=== PATIENT | male | born 2005 | race Caucasian/White ===

== ENCOUNTER 2024-07-01 16:31 | Emergency (ER) | payer BC, SELFPAY ==
[2024-07-01 16:36] VITALS: BP 119/76; PULSE 98; RESP 16; TEMP 36.6; O2SAT 98
--- NOTE | 2024-07-01 16:48 | ED.URI ---
HPI - URI/Sore Throat General Chief Complaint: Upper Respiratory Infection Stated Complaint: throat/weak/nausea Time Seen by Provider: 07/01/24 16:50 Source: patient and RN notes reviewed Mode of arrival: ambulatory Limitations: no limitations History of Present Illness HPI Narrative: 18 year old male presents with concern for 2 day history of sore throat, body aches, chills, sweats, feeling tired. He reports he has tried NyQuil without relief. MD elicited complaint: sore throat Related Data Allergies Allergy/AdvReac Type Severity Reaction Status Date / Time Penicillins Allergy Unknown unknown Verified 07/01/24 16:45 Review of Systems Review of Systems: CONSTITUTIONAL: Reports malaise, chills, sweats EYES: Denies visual changes, redness, or discharge. ENT: Denies rhinorrhea, congestion, sinus pain, otalgia reports sore throat. CARDIOVASCULAR: Denies chest pain, palpitations, or edema. RESPIRATORY: Denies cough. Denies dyspnea. GASTROINTESTINAL: Denies abdominal pain, nausea, vomiting, diarrhea SKIN: Denies rash or itching. MUSCULOSKELETAL: Reports myalgia. NEUROLOGIC: Reports headache. All systems reviewed & are unremarkable except as noted in HPI and below PMFSH Comments At time of signature, agree with nursing past medical, surgical, social and family history. There is no relevant family history pertinent to the presenting complaint Exam Narrative: GENERAL: Nontoxic-appearing, well-nourished, and in no acute distress. HEAD: Normocephalic EYES: PERRLA, conjunctivae clear ENT: Nares clear. Mucous membranes moist. TM pearly garcia with dull light reflex bilaterally; no tragal tenderness. Oropharynx not erythematous without lesions. Tonsils not enlarged and without exudate, no drooling, no hoarseness, no trismus, uvula midline. NECK: Supple. No lymphadenopathy CHEST: Clear to auscultation, breath sounds equal. No wheezing, rhonchi, rales, or stridor. No respiratory distress, speaks in full sentences. HEART: Regular rate and rhythm. No murmur heard. SKIN: Warm, dry, no rash. NEURO: Alert and oriented x3. PSYCH: Normal mood and affect Course Course Emergency Course: Patient is aware of diagnosis, understands and agrees to treatment plan. Anticipatory guidance given. Patient agrees to follow-up as directed and is aware of reasons to seek care at the emergency department. Portions of this record may have been created with voice recognition software Level of Care: Express Care Visit Vital Signs Vital signs: Vital Signs Temperature 97.8 F 07/01/24 16:36 Pulse Rate 98 07/01/24 16:36 Respiratory Rate 16 07/01/24 16:36 Blood Pressure 119/76 07/01/24 16:36 Pulse Oximetry 98 07/01/24 16:36 Oxygen Delivery Room Air 07/01/24 16:36 Temperature 97.8 F 07/01/24 16:36 Pulse Rate 98 07/01/24 16:36 Respiratory Rate 16 07/01/24 16:36 Blood Pressure 119/76 07/01/24 16:36 Pulse Oximetry 98 07/01/24 16:36 Oxygen Delivery Room Air 07/01/24 16:36 Reviewed. MDM - URI/Sore Throat MDM Narrative Medical decision making narrative: Differential diagnosis considered: Arteaga virus, strep pharyngitis, allergic rhinitis, upper respiratory tract infection, sinusitis, rhinosinusitis, nasopharyngitis. viral pharyngitis, otitis media, otitis externa, pneumonia, bronchitis, viral cough syndrome, viral syndrome, and influenza. Exam findings show no acute concerns or changes; patient is non-toxic appearing and is in no distress. Patient is appropriate for outpatient treatment and follow-up. Lab Data Attestation: I reviewed the patient's lab results. Critical Care Time Critical Care Time Critical Care Time: No Discharge Plan Discharge Clinical Impression: Acute viral syndrome Patient Disposition: Home, Self-Care Condition: Stable Instructions: Viral Syndrome (ED) Additional Instructions: Your rapid strep swab was negative today at [facility]. A throat culture will be sent to the laboratory for further testing. If the test is positive, you will receive a phone call within 48 hours and an appropriate antibiotic will be initiated at that time. Your symptoms are likely due to a viral illness, which is not treated with antibiotics. Viral symptoms can be present for up to a few weeks. -Alternate Tylenol and Motrin per package directions for fever or pain. -Antihistamine medication such as Benadryl at night and Zyrtec during the day can help improve symptoms. -Eat and drink things that are easy to swallow, like tea or soup, or popsicles to suck on. -Oral rinses such as: Salt water gargles and/or may use topical anesthetic (eg. Chloraseptic spray) or lozenges to relieve dryness or throat pain). -Frequent hand washing or hand internet security specialist is one of the best ways to prevent spread of infection. -Follow up with primary care provider in 2-3 days if condition is not improving; or seek ER visit if you have trouble breathing, cannot drink enough fluids, have muffled voice, difficulty opening your mouth, or severe swelling. Patient Language: Tamazight Prescriptions: New pseudoephedrine HCl [12 Hour Decongestant] 120 mg tablet extended release 120 mg PO Q12H PRN (Reason: nasal congestion) Qty: 20 0RF Follow-up/Referrals: PHYSICIAN,SUPPORT ANALYST [Primary Care Provider] - Stand Alone Forms: Work/School Release IP Time of Disposition: 17:07
[2024-07-01 17:18] LABS: EDSTREPNEGPOS1 Negative (Negative)
== END 2024-07-01 17:13 | disposition home or self-care (01) ==
PROVIDERS: Emergency Provider Nurse Practitioner
DX: B34.9 Viral infection, unspecified (principal)
CPT/HCPCS: 87081; 87880; 99203; G0463

== ENCOUNTER 2024-07-14 18:52 | Emergency (ER) | payer BC, SELFPAY ==
[2024-07-14 18:56] VITALS: BP 126/68; PULSE 80; RESP 18; TEMP 37; O2SAT 99
--- NOTE | 2024-07-14 19:08 | ED_ITS ---
HPI - URI/Sore Throat General Chief Complaint: Upper Respiratory Infection Stated Complaint: Sore Throat/Sinus Problem/Chills Time Seen by Provider: 07/14/24 19:08 Source: patient Mode of arrival: ambulatory Limitations: no limitations History of Present Illness HPI Narrative: 18-year-old male presents with complaint of sinus congestion, pressure, postnasal drainage, sore throat for 2 weeks. Was seen here last week, negative strep test. Given pseudoephedrine to treat congestion. Reports symptoms not improving. All systems reviewed and negative except as noted above. Related Data Home Medications ?Medication ?Instructions ?Recorded ?Confirmed ?Last Taken ?Type albuterol sulfate .ROUTE 07/14/24 Unknown History Allergies Allergy/AdvReac Type Severity Reaction Status Date / Time Penicillins Allergy Unknown unknown Verified 07/14/24 19:03 Review of Systems 2 Review of Systems: CONSTITUTIONAL: Denies fever, chills, or sweats. EYES: Denies visual changes, redness, or discharge. ENT: Reports rhinorrhea, congestion, sore throat. Denies otalgia. CARDIOVASCULAR: Denies chest pain, palpitations, or edema. RESPIRATORY: Denies cough or dyspnea. GASTROINTESTINAL: Denies abdominal pain, nausea, vomiting, or diarrhea. GENITOURINARY: Denies dysuria or hematuria. SKIN: Denies rash or itching. MUSCULOSKELETAL: Denies back pain, joint pain, or myalgia. NEUROLOGIC: Denies headache, numbness, or weakness. PSYCHIATRIC: Denies anxiety or depression. All other systems reviewed are negative, except as documented in HPI. PMFSH Comments At time of signature, agree with nursing past medical, surgical, social and family history. There is no relevant family history pertinent to the presenting complaint. Exam Narrative: GENERAL: This is a well-nourished, well-developed patient, in no apparent distress. HEAD: normocephalic, atraumatic. EYES: PERRL. Sclera clear/white. Vision is grossly intact. EARS: External ears normal, auditory canals clear and without drainage, TMs normal without perforation. Hearing grossly intact. NOSE: External nose normal with mild congestion, frontal sinus tenderness to left side on palpation THROAT: Mucous membranes moist, mild erythema with mild swelling, postnasal drainage NECK: Neck supple, non-tender without lymphadenopathy, masses or thyromegaly. CARDIOVASCULAR: Regular rate and rhythm without murmurs, gallops, or rubs. RESPIRATORY: Clear to auscultation. Breath sounds equal bilaterally. No wheezes, rales, or rhonchi. SKIN: warm, Dry, intact with no suspicious lesions or rash, good texture and turgor. NEURO: awake, alert, and oriented to person, place and time. There were no obvious focal neurologic abnormalities. EXTREMITIES: No joint tenderness, effusion, or edema noted. Course Course Level of Care: Express Care Visit Vital Signs Vital signs: Vital Signs Temperature 37.0 C 07/14/24 18:56 Pulse Rate 80 07/14/24 18:56 Respiratory Rate 18 07/14/24 18:56 Blood Pressure 126/68 07/14/24 18:56 Pulse Oximetry 99 07/14/24 18:56 Oxygen Delivery Room Air 07/14/24 18:56 Temperature 37.0 C 07/14/24 18:56 Pulse Rate 80 07/14/24 18:56 Respiratory Rate 18 07/14/24 18:56 Blood Pressure 126/68 07/14/24 18:56 Pulse Oximetry 99 07/14/24 18:56 Oxygen Delivery Room Air 07/14/24 18:56 reviewed MDM - URI/Sore Throat MDM Narrative Medical decision making narrative: will treat patient for bacterial sinusitis due to duration of symptoms and exam findings. Patient is well-appearing, nontoxic. Agrees with plan of care. Patient is aware of diagnosis, understands and agrees to treatment plan. Anticipatory guidance given. Patient agrees to follow-up as directed and is aware of reasons to seek care at the emergency department. Portions of this record may have been created with voice recognition software Differential Diagnosis Differential diagnosis: Likely upper respiratory infection, sinusitis, viral infection, influenza and pharyngitis Discharge Plan Discharge Clinical Impression: Acute bacterial sinusitis Patient Disposition: Home, Self-Care Condition: Stable Instructions: Antibiotic Form, Sinusitis (ED) Additional Instructions: take antibiotic as prescribed until gone. take Tylenol or ibuprofen every 6-8 hours as needed for fever and pain. Drink at least 64 oz of water a day. Place cool mist humidifier in bedroom where you sleep. Follow-up with your primary care physician if symptoms are not improving. Patient Language: Urdu Prescriptions: New doxycycline hyclate 100 mg capsule 100 mg PO BID 7 Days Qty: 14 0RF fluticasone propionate [Flonase Allergy Relief] 50 mcg/actuation spray,suspension 1 spray intranasal BID Qty: 16 0RF Rx Instructions: administer into each nostril loratadine [Claritin] 10 mg tablet 10 mg PO DAILY Qty: 30 0RF No Action albuterol sulfate .ROUTE Follow-up/Referrals: PHYSICIAN,UNION LABORER [Primary Care Provider] - Stand Alone Forms: Work/School Release IP Time of Disposition: 19:15
== END 2024-07-14 19:18 | disposition home or self-care (01) ==
PROVIDERS: Emergency Provider Nurse Practitioner Family
DX: J01.90 Acute sinusitis, unspecified (principal); J45.909 Unspecified asthma, uncomplicated
CPT/HCPCS: 99213; G0463

== ENCOUNTER 2024-11-25 18:41 | Emergency (ER) | payer BC, SELFPAY ==
[2024-11-25 18:41] VITALS: BP 127/74; PULSE 118; RESP 22; O2SAT 96
--- OUTSIDE RECORDS SUMMARY | 2024-11-25 18:43 | XMS_ITS | Referral Summary ---
Author Organization [facility] Address [address] [place] [address] Care Team Providers Care Loan Consultant Name Role Phone No, Physician Primary Care Provider [phone] Allergies Active Allergy Reactions Criticality Noted Date Comments Shellfish Containing Products Anaphylaxis High 02/22 Sulfa (Sulfonamide Antibiotics) Hives Medium 01/29 Medications naproxen (NAPROSYN) 375 mg tablet Take 1 tablet (375 mg total) by mouth 2 (two) times a day with meals P.r.n. pain. Collaborating physician Trey Silva MD 20 tablet 1 Active albuterol HFA (PROVENTIL HFA,VENTOLIN HFA,PROAIR HFA) 90 mcg/actuation inhaler INHALE 2 PUFFS BY MOUTH EVERY 4 HOURS DIRECTED 2 Active cetirizine (ZyrTEC) 10 mg tablet Take 10 mg by mouth daily as needed 2 Active Flovent HFA 110 mcg/actuation inhaler Inhale 2 puffs 2 (two) times a day 2 Active fluticasone propionate (FLONASE) 50 mcg/actuation nasal spray SHAKE LIQUID AND USE 1 SPRAY IN EACH NOSTRIL DAILY 2 Active montelukast (SINGULAIR) 10 mg tablet Take 10 mg by mouth nightly at bedtime 2 Active Active Problems Problem Noted Date Diagnosed Date Regular astigmatism of both eyes 02/20/2022 Myopia of both eyes 02/20/2022 Irritation of both eyes 02/20/2022 Strain of other muscle(s) an d tendon(s) at lower leg level, left leg, initial encounter 02/22/2021 Sprain of anterior talofibular ligament of left ankle 02/22/2021 Screening for iron deficiency anemia 09/23/2006 Acute upper respiratory infection 05/16/2005 Social History Tobacco Use Types Packs/Day Years Used Date Smoking Tobacco: Former Cigarettes Q uit: 10/26/2021 Smokeless Tobacco: Former Personal Safety Answer Date Recorded Have you ever been in or are you currently in a harmful physical or emotional relationship or is someone making you feel afraid or unsafe? 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 Gender Identity Not on file Sexual Orientation Not on file Last Filed Vital Signs Vital Sign Reading Time Taken Comments Blood Pressure 124/79 08/10/2024 7:28 AM FORMING DEPARTMENT SUPERVISOR Pulse 75 08/10/2024 7:28 AM FORMING DEPARTMENT SUPERVISOR Temperature 36.6 C (97.8 F) 08/10/2024 7:28 AM FORMING DEPARTMENT SUPERVISOR Respiratory Rate 16 08/10/2024 7:28 AM FORMING DEPARTMENT SUPERVISOR Oxygen Saturation 99% 08/10/2024 7:28 AM FORMING DEPARTMENT SUPERVISOR Inhaled Oxygen Concentration - - Weight 75.8 kg (167 lb) 08/10/2024 5:05 AM FORMING DEPARTMENT SUPERVISOR Height 177.8 cm (5' 10) 08/10/2024 5:05 AM FORMING DEPARTMENT SUPERVISOR Body Mass Index 23.96 08/10/2024 5:05 AM FORMING DEPARTMENT SUPERVISOR Plan of Treatment Not on file Insurance [facility] PLAN [facility] [place] [address] [address] Care Teams Loan Consultant Relationship Specialty Start Date End Date No, Physician PCP - General 08/05/24
--- OUTSIDE RECORDS SUMMARY | 2024-11-25 18:43 | XMS_ITS | Clinical Summary ---
Author Organization [facility] Address [address] [place] [address] Care Team Providers Care Marketing Communication Manager Name Role Phone Sanjuanita Gray MD Primary Care Provider [phone] Vanda Hale APRN-PUBLIC HEALTH TECHNOLOGIST Unavailable [phone] Source Comments [facility],non-owned Affiliates and Associated Physician Practices is amultiple site organization consisting of ambulatory clinics and hospital sitesin [place], [place], [place] and [place]. This disclosure is being madepursuant to the Care Everywhere program and may not contain all information available regarding this patient. Last updated 18.[facility] [employer] Allergies No known active allergies Medications * Be aware that medications may not be up to date on this document. Alwaysverify current medications with the patient. albuterol (PROVENTIL;HEMA BREA) (5 MG/ML) 0.5% nebulizer solution Inhale 2.5 mg by mouth every 4 hours while awake. Active budesonide (PULMICORT) 0.25 MG/2ML nebulizer suspension Inhale 0.25 mg by mouth 2 times daily. 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 Gender Identity Not on file Sexual Orientation Not on file Last Filed Vital Signs Vital Sign Reading Time Taken Comments Blood Pressure 138/66 01/19/2024 4:48 PM CDT Pulse 83 01/19/2024 4:48 PM CDT Temperature 36.5 C (97.7 F) 01/19/2024 4:48 PM CDT Respiratory Rate 16 01/19/2024 4:48 PM CDT Oxygen Saturation 98% 01/19/2024 4:48 PM CDT Inhaled Oxygen Concentration - - Weight 24.4 kg (53 lb 12.8 oz) 01/14/2012 3:06 P M CDT Height 177.8 cm (5' 10) 01/19/2024 4:48 PM CDT Body Mass Index - - Plan of Treatment Health Maintenance Due Date Last Done Comments HIV SCREENING 09/26/2019 HPV VACCINE (1 - Male 3-dose series) 09/26/2019 MENINGOCOCCAL (Group B) VACCINE SHARED DECISION-MAKING (1 of 2 - Standard) 2020 HEPATITIS C SCREENING 09/21/2022 DTAP/TDAP/TD VACCINES (1 - Tdap) 09/26/2023 HEPATITIS B VACCINE (1 of 3 - 19+ 3-dose series) 09/26/2023 COVID-19 VACCINE (1 - 2023-2 5 season) 2024 DEPRESSION SCREENING 06/30/2024 INFLUENZA VACCINE (Season Ended) 2025 04/20/2013, 04/11/2010, 05/30/2009 ZOSTER VACCINE (1 of 2) 2054 HIB VACCINE Aged Out No longer eligi ble based on patient's age to complete this topic MENINGOCOCCAL GROUPS A/C/Y/W VACCINE Aged Out No longer eligible b ased on patient's age to complete this topic PNEUMOCOCCAL VACCINE Aged Out No long er eligible based on patient's age to complete this topic Insurance [employer] Care Teams Marketing Communication Manager Relationship Specialty Start Date End Date Sanjuanita Gray MD [address] [facility] [address] [place] [id number] PCP - General 08/23/09 Vanda Hale, ORDER DESK CLERK-PUBLIC HEALTH TECHNOLOGIST [address] [place] [address] PCP - Attributed-[employer] Medicaid [id number] 02/29/24
--- OUTSIDE RECORDS SUMMARY | 2024-11-25 18:43 | XMS_ITS | Continuity of Care Document ---
Author Organization [facility] Address [address] [place] [address] Phone Care Team Providers Care Multimedia Educational Specialist Name Role Phone Maikol Gray MD Unavailable Unavailable Allergies, Adverse Reactions, Alerts Substance Reaction Status Criticality No Known Drug Allergies Other Active No I nformation Medications Medication Instructions Dosage Effective Dates (start - stop) Status Comments ProAir HFA 90 mcg/actuation aerosol inhaler inhale 2 puff by inhalation route every 4 - 6 hours as needed - Active loratadine 10 mg tablet 1 tablet by oral route every 24 hours prn allergy symptoms - Active Qvar 40 mcg/actuation Metered Aerosol oral inhaler 2 puffs twice daily - Active replace s Pulmicort Flexhaler Flonase 50 mcg/actuation nasal spray,suspension spray 1 spray by intranasal route every day in each nostril - Active ProAir HFA 90 mcg/actuation aerosol inhaler inhale 2 puff by inhalation route every 4 - 6 hours as needed - No Longer Active loratadine 10 mg tablet 1 tablet by Oral route every 24 hours prn allergy symptoms - No Longer Active Advance Directives Directive Yes / No Effective Date File Name No Information Encounters Encounter Description Practice Location Reason(s) For Visit Diagnoses Date Provider Providers Copied on Encounter [facility], [address], [place], [place], [address] , [place] tel: [phone] [facility] Encntr for routine child health exam w/o abnormal findingsMild intermittent asthma without complicationAllergic rhinitis, unspecified Sep-0 3- 9 Isaac Lassiter. [address], [address], [place], [place], [address], [place]. tel:[phone] Referring Provider: Maikol Singh, [address] [facility] [address], [place], [address] . tel:[phone] [facility], [address], [place], [place], [address] , [place] tel: [phone] [facility] acute visit (chief complaint) Bone pain 9 Nemo Oquendo. [address], [place], [place], [address], [place]. tel:[phone] Referring Provider: Maikol Singh, [address], [place], [address] . tel:[phone] [facility], [address], [place], [place], [address] , [place] tel: [phone] [facility] well visit (chief complaint) Asthma-con trol (chief complaint) Encntr for routine child health exam w/o abnormal findingsMild persistent asthma without complication 8 Isaac Lassiter. [address], [address], [place], [place], [address], [place]. tel:[phone] Referring Provider: Maikol Singh, [address], [place], [address] . tel:[phone] [facility], [address], [place], [place], [address] , [place] tel: [phone] [place] Injury of left ankle, initial encounter 7 Nemo Oquendo. [address], [address], [place], [place], [address], [place]. tel:[phone] Referring Provider: Maikol Singh, [address], [place], [address] . tel:[phone] [facility] [address], [place], [place], [address] , tel: [phone] [place] Agitated depression 7 Isaac Lassiter. [address], [address], [place], [place], [address], [place]. tel:[phone] Referring Provider: Maikol Singh, [address], [place], [address] . tel:[phone] [facility] [address], [place], [place], [address] , tel: [phone] [place] Lymphadenitis 6 Isaac Lassiter. [address] [facility] [facility], [address], [place], [place], [address], [place]. tel:[phone] Referring Provider: Maikol Singh, [address], [place], [address] . tel:[phone] [facility] [address], [place], [place], [address] , tel: [phone] [facility] Mild intermittent asthma with acute exacerbationHematoma of groin, initial encounter 6 Isaac Lassiter. [address], [address], [place], [place], [address], [place]. tel:[phone] Referring Provider: Maikol Singh, [address], [place], [address] . tel:[phone] [facility] [address], [place], [place], [address] , [place] tel: [phone] [facility] Acute pharyngitisMigraine, unspecified, not intractable, without status migrainosus 5 Nemo Oquendo. [address], [place], [place], [address], [place]. tel:[phone] Referring Provider: Maikol Singh, [address] [facility] [address], [place], [address] . tel:[phone] [facility], [address], [place], [place], [address] , tel: [phone] [facility] GERD (gastroesophageal reflux disease) 5 Isaac Lassiter. [address] [facility], [address], [place], [place], [address], [place]. tel:[phone] Referring Provider: Maikol Singh, [address] [facility] [address], [place], [address] . tel:[phone] [facility] [address], [place], [place], [address] , [place] tel: [phone] [facility] Knee pain 5 Isaac Lassiter. [address] [facility], [address], [place], [place], [address], [place]. tel:[phone] Referring Provider: Maikol Singh, [address] [facility] [address], [place], [address] . tel:[phone] [facility] [address], [place], [place], [address] , tel: [phone] [facility] infant or child health checkAsthma, moderate persistent, poorly-controlled 5 Isaac Lassiter. [address] [facility], [address], [place], [place], [address], [place]. tel:[phone] Referring Provider: Maikol Singh, [address] [facility] [address], [place], [address] . tel:[phone] [facility] [address], [place], [place], [address] , [place] tel: [phone] [place] Influenza-like illness 5 Isaac Lassiter. [address] [facility], [address], [place], [place], [address], [place]. tel:[phone] Referring Provider: Maikol Singh, [address] [facility] [address], [place], [address] . tel:[phone] [facility], [address], [place], [place], [address] , [place] tel: [phone] [facility] Acute suppurative otitis media without spontaneous rupture of eardrum 4 Isaac Lassiter. [address], [address], [place], [place], [address], [place]. tel:[phone] Referring Provider: Maikol Singh, [address] [facility] [address], [place], [address] . tel:[phone] [facility], [address], [place], [place], [address] , [place] tel: [phone] [facility] Hand, foot and mouth disease 4 Isaac Lassiter. [address] [facility], [address], [place], [place], [address], [place]. tel:[phone] Referring Provider: Maikol Singh, [address] [facility] [address], [place], [address] . tel:[phone] [facility], [address], [place], [place], [address] , [place] tel: [phone] [facility] Routine infant or child health checkEXTRINSIC ASTHMA, UNSPECIFIEDRoutine or child health check 3 Isaac Lassiter. [address], [address], [place], [place], [address], [place]. tel:[phone] Referring Provider: Maikol Singh, [address] [facility] [address], [place], [address] . tel:[phone] [facility], [address], [place], [place], [address] , tel: [phone] [facility] No Information 3 Isaac Lassiter. [address] [facility], [address], [place], [place], [address], [place]. tel:[phone] [facility], [address], [place], [place], [address] , [place] tel: [phone] [facility] No Information 2 Isaac Lassiter. [address] [facility], [address], [place], [place], [address], [place]. tel:[phone] [facility], [address], [place], [place], [address] , [place] tel: [phone] [facility] Routine or child health checkExamination of eyes and visionEXAM EARS & HEARING NECRoutine infant or child health check 2 Isaac Lassiter. [address] [facility], [address], [place], [place], [address], [place]. tel:[phone] Referring Provider: Maikol Singh, [address] [place] [address] [address], [place], [address] . tel:[phone] [facility], [address], [place], [place], [address] , [place] tel: [phone] [facility] Acute suppurative otitis media without spontaneous rupture of eardrum 1 Isaac Lassiter. [address] [facility], [address], [place], [place], [address], [place]. tel:[phone] Referring Provider: Maikol Singh, [address] [place] [address] [address], [place], [address] . tel:[phone] [facility], [address], [place], [place], [address] , [place] tel: [phone] [facility] CH OBST ASTH W (AC) EXAC 1 Isaac Lassiter. [address] [facility], [address], [place], [place], [address], [place]. tel:[phone] [facility], [address], [place], [place], [address] , [place] tel: [phone] [facility] ALLERGIC RHINITIS NOS 3-201 0 Isaac Lassiter. [address] [facility], [address], [place], [place], [address], [place]. tel:[phone] [facility] [employer], [address], [place], [place], [address] , tel: [phone] [facility] EXTRINSIC ASTHMA NOS 9 Isaac Lassiter. [address] [facility], [address], [place], [place], [address], [place]. tel:[phone] [employer], [address], [place], [place], [address] , [place] tel: [phone] [facility] No Information 9 Isaac Lassiter. [address] [facility], [address], [place], [place], [address], [place]. tel:[phone] Family History Family Member Type Diagnosis Age At Onset Problem (finding) Family history of manic -depressive state Problem (finding) Family history of attention deficit hyperactivity disorder Problem (finding) Family history of depre ssion Immunizations Vaccine Date Status Comments HPV (9-valent) administered Source: New I mmunization Record Tdap administered Source: New Imm unization Record meningococcal MCV4P administered Source: New Immunization Record HPV (9-valent) administered Source: New I mmunization Record Flu (split) (3 yrs or older) administered Note: vis 01-22-13 ; Source: New Immunization Record varicella administered Source: New Imm unization Record hep A (ped/adol, 2 dose) administered Kavitha rce: New Immunization Record MMR administered Source: New Imm unization Record DTaP administered Source: New Imm unization Record polio, inactivated (IPV) administered Kavitha rce: New Immunization Record INFLUENZA A (H1N1 IMMUNICATI ON ADMIN administered Source: Source Unspe cified INFLUENZA A (H1N1 IMMUNICATI ON ADMIN administered Source: Source Unspe cified flu (split) (3 yrs or older) preservative free administered Source: New Immuniza tion Record DTaP administered Source: New Imm unization Record varicella administered Source: New Imm unization Record hep A (ped/adol, 2 dose) administered Kavitha rce: New Immunization Record MMR administered Source: New Imm unization Record 52222 - Hib administered Source: Source Unspecified 50776 - Polio_OPV_IPV administered Source : Source Unspecified 26136 - Hepatitis_B administered Source: Source Unspecified 61077 - DTaP_DTP_DT_PEDS administered Kavitha rce: Source Unspecified 43488 - Hib administered Source: Source Unspecified 18726 - Pneumococcal_PCV administered Kavitha rce: Source Unspecified 85379 - Hepatitis_B administered Source: Source Unspecified 27322 - Hib administered Source: Source Unspecified 54770 - DTaP_DTP_DT_PEDS administered Kavitha rce: Source Unspecified 11892 - Pneumococcal_PCV administered Kavitha rce: Source Unspecified 26017 - Polio_OPV_IPV administered Source : Source Unspecified 92398 - DTaP_DTP_DT_PEDS administered Kavitha rce: Source Unspecified 10850 - Hib administered Source: Source Unspecified 03247 - Pneumococcal_PCV administered Kavitha rce: Source Unspecified 45896 - Polio_OPV_IPV administered Source : Source Unspecified 19435 - Hepatitis_B administered Source: Source Unspecified Payers Payer name Insurance type Covered democrat ID Authoriza tion(s) [employer] STATE [employer] PLAN CI [id number] [employer] CI [id number] [employer] CI [id number] Social History Type Description Quantity Date Captured Comments Alcohol Use Details Unknown Caffeine Use Details Unknown Tobacco Use Status No Information Smoking Status Never smoker Sex Male Sexual Orientation Straight or heterosexual Vital Signs Date / Time: Height Weight BMI Pulse Rate Blood Pressure Temperature Respiratory Rate Body Surface Area Head Circumference Head Circ. Percentile Wt./Florentino. Percentile BMI percentile Pulse Ox Inhaled Ox 10:48 AM 67.25 in 53.796 kg (118.60 lbs) 18.4 4 kg/m eter (2) 62 /min 103/58 mm[Hg] 98.40 F 38 Chief Complaint And Reason For Visit No Information Reason For Referral Reason For Referral No Information Plan Of Treatment Date Type Action Status Goal Hematocrit . Due on 019 due Goal Vision screen (15-17 yr) due Goal Hematocrit . Due on 018 due Goal Vision screen (18-21 yr) due History Of Present Illness Encounter Date Complaint History Of Prese nt Illness acute visit Chief complaint: ankle pain,foot ,heel pain. Symptoms started 2 days ago Context notable for no injury. Associated symptoms include fatigue, limp, decreased activity and joint pain. Pertinent negatives include abdominal pain, blood in stool, decreased PO intake, diarrhea, dizziness, headache, myalgia, nausea, rash, sleep disturbance, vomiting, fever, chills, bruising and joint swelling.pain in bones of knee,ankle and foot after playing volleyball in PE class, 'bones hurt all over'in both knees,ankles and knees well visit No problems or c oncerns voiced today by patient or parent Asthma-control Trace was seen isatu rodas for asthma management. His asthma is classified as Mild Persistent.Since His last visit for asthma control on 2015, He has had asthma related:-hospitalizations: NO-ER/Urgent care visits: NO-oral steroids: YES-rescue inhaler use: YES-Missed school/work: NOAsthma Control Test score: 211. Unlimited activity: None of the time (5)2. Caused shortness of breath: Once or twice a week (4)3. Interrupted sleep: Not at all (5)4. How often using rescue med: 2 or 3 times per week (3)5. Personal rating of control: Well controlled (4)The asthma is Well Controlled.Known triggers include: exercise.Environmental exposure/control:Smoker: NOTobacco exposure: YESAsthma Medications:History of adverse reaction to therapy: NOProper use of MDI/Spacer/Nebulizer: YES Functional Status Date Functional Assessmen t No Information Instructions Date Instruction Additional Infor lesvia knee pain,ankle pain ,heel pain with limp-acute onsetCBC with diff,ESR,CRP,uric acid,JUNITO,Rheum FactorMotrinAlternate heating pad with ice Related to Bone pain Safety precautions Asthma: stable....re fill meds today....flu vaccine in child is diagnosed with asthma or wheezing illness. Oftenan illness or allergy exposure triggers the wheezing. This can be a life threatening condition in rare cases, so your physician has prescribed the above medications and/or treatments. Your child may need frequent care and close observation for worsening symptoms. Please call our office if child is not responding to medications in timely manner or worsening breathing, severe/unstoppable cough or not eating or drinking due to shortness of breath.-- Your child will need follow-up appointment to recheck illness and effectiveness of medication. There may be daily medications such as inhaled steroid, singulair, nasal steroids, antihistamines. It is important for children with asthma to receive influenza vaccines yearly.Status: Meeting treatment plan goals. Goals: Your goal is to maintain an active life. Maintain physical activities of daily living such as walking, climbing stairs, etc. Exercise at least 3x per week, 30 minute each time. Barriers: No barriers to goal achievement have been identified. Related to Mild persistent asthma without complication Well Adolescent..... ...Good growth and age appropriate development......Discussed issues safety, healthy diet and healthy lifestyle choices,school importance and age appropriate information provided for pubertal,sexual issues...return as needed and next Well care appointment.....Vaccines given today:....hpv, menactra, Tdap.........screening labs recommended today include: lipids Related to Encntr for routine child health exam w/o abnormal findings Well Child 12-21 Years Assessments Type Assessment Date No Information Patient Care Teams Name Effective Dates (start - stop) Status Members No Information
--- OUTSIDE RECORDS SUMMARY | 2024-11-25 18:43 | XMS_ITS | Clinical Summary ---
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 Gender Identity Not on file Sexual Orientation Not on file Obstetrics History Last Filed Vital Signs Vital Sign Reading Time Taken Comments Blood Pressure 124/79 08/10/2024 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 Pulse 75 08/10/2024 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 Temperature 36.6 C (97.8 F) 08/10/2024 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 Respiratory Rate 16 08/10/2024 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 Oxygen Saturation 99% 08/10/2024 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 Inhaled Oxygen Concentration - - Weight 75.8 kg (167 lb) 08/10/2024 5:05 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 Height 177.8 cm (5' 10) 08/10/2024 5:05 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 Body Mass Index 23.96 08/10/2024 5:05 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 Plan of Treatment Health Maintenance Due Date Last Done Comments Depression Screening 2004 Hepatitis C Screening 2004 Meningococcal B Vaccine (2 o f 2 - Bexsero SCDM 2-dose series) 07/26/2022 01/23/2022 Regular Well Visit/Exam 18-64 2022 Covid-19 Vaccine (2023-2 5 season) 2024 01/23/2022, 07/04/2021, 06/13/2021 Influenza Vaccine (Season Ended) 2025 04/03/2020, 04/20/2013, 04/20/2013, Additional history exists DTaP/Tdap/Td Vaccine (7 - Td or Tdap) 10/16/2027 10/15/2017, 12/13/2009, 12/13/2009, Additional history exists Hepatitis B Screening Completed 08/02/2005 , 08/02/2005, 04/03/2005, Additional history exists Pneumococcal vaccine <65 Completed 006, 04/03/2005, 02/04/2005, Additional history exists Varicella Vaccines Completed 12/13/2009, 0 11/11/2008, 09/23/2006 HPV Vaccines Completed 09/30/2018, 040 08/2018, 10/15/2017, Additional history exists Meningococcal Vaccine Completed 01/23/2022 , 04/03/2020, 10/15/2017 Insurance [facility] Care Teams Lump Room Supervisor Relationship Specialty Start Date End Date No, Physician PCP - General 08/05/24
--- OUTSIDE RECORDS SUMMARY | 2024-11-25 18:43 | XMS_ITS | Continuity of Care Document ---
Author Organization [facility] Address [address] [place] [address] Phone Care Team Providers Care Classroom Technology Technician Name Role Phone Donnell Childers MD Unavailable Unavailable Allergies, Adverse Reactions, Alerts Substance Reaction Status Criticality No Known Allergies Active No Inform ation Medications Medication Instructions Dosage Effective Dates (start - stop) Status Comments No Drug Therapy Prescribed Advance Directives Directive Yes / No Effective Date File Name No Information Encounters Encounter Description Practice Location Reason(s) For Visit Diagnoses Date Provider Providers Copied on Encounter [facility], [address], [address], tel:[phone] [facility] Closed fracture of left ankle with routine healing 7 Stazzone Donnell. [address] [place], [place], [address] . tel: [phone] [facility], [address] [facility] [address], [place], [address], tel:[phone] [facility] Closed fracture of left ankle, initial encounter 7 Stazzone Donnell. [address] [place], [place], [address] . tel: [phone] Family History Family Member Type Diagnosis Age At Onset No Information Payers Payer name Insurance type Covered republican ID Authoriza tion(s) Home State Health Plan [id number] Social History Type Description Quantity Date Captured Comments Sex Male Smoking Status No Information Chief Complaint And Reason For Visit No Information Reason For Referral Reason For Referral No Information Plan Of Treatment Date Type Action Status Referral Ordered: RADEX ANKLE 2 VIEWS LT ordered History Of Present Illness Encounter Date Complaint History Of Prese nt Illness No Information Functional Status Date Functional Assessmen t No Information Medications Administered Medication Instructions Dosage Effective Dates (start - stop) Status Comments No Drug Therapy Prescribed Instructions Date Instruction Additional Infor mation No Information Assessments Type Assessment Date assessment Closed fracture of left ankle wi th routine healing Patient Care Teams Name Effective Dates (start - stop) Status Members No Information
--- NOTE | 2024-11-25 19:51 | PC.NURSE ---
pt called for vital signs at 1950. pt did not answer.
--- OUTSIDE RECORDS SUMMARY | 2024-11-25 21:56 | XMS_ITS | Continuity of Care Document ---
Author Organization [facility] Address [address] [place] [address] Phone Care Team Providers Care Air Deodorizer Servicer Name Role Phone Maikol Gray MD Unavailable [...] Diagnoses Date Provider Providers Copied on Encounter [facility], [address], [place], [place], [address] , [place] tel: [phone] [facility] Encntr for routine child health exam w/o abnormal findingsMild intermittent asthma without complicationAllergic rhinitis, unspecified Sep-0 3- 9 Isaac Lassiter. [address], [place], [place], [address], [place]. tel:[phone] Referring Provider: Maiokl Singh, [address] [facility] [address], [place], [address] . tel:[phone] [facility], [address], [place], [place], [address] , [place] tel: [phone] [facility] acute visit (chief complaint) Bone pain 9 Nemo Oquendo. [address], [address], [place], [place], [address], [place]. tel:[phone] Referring Provider: Maikol Singh, [address], [place], [address] . tel:[phone] [facility], [address], [place], [place], [address] , [place] tel: [phone] [facility] well visit (chief complaint) Asthma-con trol (chief complaint) Encntr for routine child health exam w/o abnormal findingsMild persistent asthma without complication 8 Isaac Lassiter. [address], [place], [place], [address], [place]. tel:[phone] Referring Provider: Maikol Singh, [address], [place], [address] . tel:[phone] [facility], [address], [place], [place], [address] , [place] tel: [phone] [place] Injury of left ankle, initial encounter 7 Nemo Oquendo. [address], [place], [place], [address], [place]. tel:[phone] Referring Provider: Maikol Singh, [address], [place], [address] . tel:[phone] [facility] [address], [place], [place], [address] , tel: [phone] [place] Agitated depression 7 Isaac Lassiter. [address], [address], [place], [place], [address], [place]. tel:[phone] Referring Provider: Maikol Singh, [address], [place], [address] . tel:[phone] [facility] [address], [place], [place], [address] , tel: [phone] [facility] Lymphadenitis 6 Isaac Lassiter. [address] [facility] [address], [address], [place], [place], [address], [place]. tel:[phone] Referring Provider: Maikol Singh, [address], [place], [address] . tel:[phone] [facility] [address], [place], [place], [address] , tel: [phone] [facility] Mild intermittent asthma with acute exacerbationHematoma of groin, initial encounter 6 Isaac Lassiter. [address], [address], [place], [place], [address], [place]. tel:[phone] Referring Provider: Maikol Singh, [address], [place], [address] . tel:[phone] [facility] [address], [place], [place], [address] , [place] tel: [phone] [facility] Acute pharyngitisMigraine, unspecified, not intractable, without status migrainosus 5 Nemo Oquendo. [address], [place], [place], [address], [place]. tel:[phone] Referring Provider: Maikol Singh, [address] [facility] [address], [place], [address] . tel:[phone] [facility], [address], [place], [place], [address] , tel: [phone] [facility] GERD (gastroesophageal reflux disease) 5 Isaac Lassiter. [address] [facility], [address], [place], [place], [address], [place]. tel:[phone] Referring Provider: Maikol Singh, [address] [facility] [address], [place], [address] . tel:[phone] [facility] [address], [place], [place], [address] , [place] tel: [phone] [facility] Knee pain 5 Isaac Lassiter. [address] [facility], [address], [place], [place], [address], [place]. tel:[phone] Referring Provider: Maikol Singh, [address] [facility] [address], [place], [address] . tel:[phone] [facility] [address], [place], [place], [address] , tel: [phone] [facility] infant or child health checkAsthma, moderate persistent, poorly-controlled 5 Isaac Lassiter. [address] [facility], [address], [place], [place], [address], [place]. tel:[phone] Referring Provider: Maikol Singh, [address] [facility] [address], [place], [address] . tel:[phone] [facility] [address], [place], [place], [address] , [place] tel: [phone] [facility] Influenza-like illness 5 Isaac Lassiter. [address] [facility], [address], [place], [place], [address], [place]. tel:[phone] Referring Provider: Maikol Singh, [address] [facility] [address], [place], [address] . tel:[phone] [facility], [address], [place], [place], [address] , [place] tel: [phone] [facility] Acute suppurative otitis media without spontaneous rupture of eardrum 4 Isaac Lassiter. [address], [address], [place], [place], [address], [place]. tel:[phone] Referring Provider: Maikol Singh, [address] [facility] [address], [place], [address] . tel:[phone] [facility], [address], [place], [place], [address] , [place] tel: [phone] [facility] Hand, foot and mouth disease 4 Isaac Lassiter. [address], [address], [place], [place], [address], [place]. tel:[phone] Referring Provider: Maikol Singh, [address] [facility] [address], [place], [address] . tel:[phone] [facility], [address], [place], [place], [address] , [place] tel: [phone] [facility] Routine infant or child health checkEXTRINSIC ASTHMA, UNSPECIFIEDRoutine or child health check 3 Isaac Lassiter. [address] [facility] [address], [address], [place], [place], [address], [place]. tel:[phone] Referring Provider: Maikol Singh, [address] [facility] [address], [place], [address] . tel:[phone] [facility], [address], [place], [place], [address] , tel: [phone] [facility] No Information 3 Isaac Lassiter. [address] [facility], [address], [place], [place], [address], [place]. tel:[phone] [facility], [address], [place], [place], [address] , [place] tel: [phone] [facility] No Information 2 Isaac Lassiter. [address] [facility], [address], [place], [place], [address], [place]. tel:[phone] [facility], [address], [place], [place], [address] , [place] tel: [phone] [facility] Routine or child health checkExamination of eyes and visionEXAM EARS & HEARING NECRoutine infant or child health check 2 Isaac Lassiter. [address] [facility], [address], [place], [place], [address], [place]. tel:[phone] Referring Provider: Maikol Singh, [address] [place] [address] [address], [place], [address] . tel:[phone] [facility], [address], [place], [place], [address] , [place] tel: [phone] [facility] Acute suppurative otitis media without spontaneous rupture of eardrum 1 Isaac Lassiter. [address] [facility], [address], [place], [place], [address], [place]. tel:[phone] Referring Provider: Maikol Singh, [address] [place] [address] [address], [place], [address] . tel:[phone] [facility], [address], [place], [place], [address] , [place] tel: [phone] [facility] CH OBST ASTH W (AC) EXAC 1 Isaac Lassiter. [address] [facility], [address], [place], [place], [address], [place]. tel:[phone] [facility], [address], [place], [place], [address] , [place] tel: [phone] [facility] ALLERGIC RHINITIS NOS 3-201 0 Isaac Lassiter. [address] [facility], [address], [place], [place], [address], [place]. tel:[phone] [facility], [address], [place], [place], [address] , tel: [phone] [facility] EXTRINSIC ASTHMA NOS 9 Isaac Lassiter. [address] [facility], [address], [place], [place], [address], [place]. tel:[phone] [facility], [address], [place], [place], [address] , [place] tel: [phone] [facility] No Information 9 Isaac Lassiter. [address] [facility], [address], [place], [place], [address], [place]. tel:[phone] Family History Family Member Type Diagnosis Age [...] MMR administered Source: New Imm unization Record 52600 - Hib administered Source: Source Unspecified 17795 - Polio_OPV_IPV administered Source : Source Unspecified 87386 - Hepatitis_B administered Source: Source Unspecified 96293 - DTaP_DTP_DT_PEDS administered Kavitha rce: Source Unspecified 24523 - Hib administered Source: Source Unspecified 80786 - Pneumococcal_PCV administered Kavitha rce: Source Unspecified 14739 - Hepatitis_B administered Source: Source Unspecified 30648 - Hib administered Source: Source Unspecified 60235 - DTaP_DTP_DT_PEDS administered Kavitha rce: Source Unspecified 38975 - Pneumococcal_PCV administered Kavitha rce: Source Unspecified 17588 - Polio_OPV_IPV administered Source : Source Unspecified 45051 - DTaP_DTP_DT_PEDS administered Kavitha rce: Source Unspecified 40127 - Hib administered Source: Source Unspecified 75585 - Pneumococcal_PCV administered Kavitha rce: Source Unspecified 02791 - Polio_OPV_IPV administered Source : Source Unspecified 61628 - Hepatitis_B administered Source: Source Unspecified Payers Payer name Insurance type Covered democrat ID Authoriza tion(s) [employer]AN CI [id number] [employer] CI [id number] [employer] CI [id number] Social History Type Description Quantity Date Captured [...]
--- OUTSIDE RECORDS SUMMARY | 2024-11-25 21:56 | XMS_ITS | Continuity of Care Document ---
Author Organization [facility] Address [address] [place] [address] Phone Care Team Providers Care Stores Despatch Hand Name Role Phone Donnell Childers MD Unavailable [...] Diagnoses Date Provider Providers Copied on Encounter [facility], [address], [address], tel:[phone] [facility] Closed fracture of left ankle with routine healing 7 Stazzone Donnell. [address] [place], [place], [address] . tel: [phone] [facility], [address] [facility] [address], [place], [address], tel:[phone] [facility] Closed fracture of left ankle, initial encounter 7 Stazzone Donnell. [address] [place], [place], [address] . tel: [phone] Family History Family Member Type Diagnosis Age At Onset No Information Payers Payer name Insurance type Covered alliance party ID Authoriza tion(s) [employer] Plan [id number] Social History Type Description Quantity Date Captured [...]
== END 2024-11-25 19:51 | disposition left against medical advice (07) ==
LOC: ANHED 21:54
DX: R06.00 Dyspnea, unspecified (principal)
CPT/HCPCS: 99199

== ENCOUNTER 2025-02-14 19:23 | Emergency (ER) | payer BC, SELFPAY ==
--- OUTSIDE RECORDS SUMMARY | 2025-02-14 19:25 | XMS_ITS | Continuity of Care Document ---
Author Organization [facility] Address [address] [place] [address] Phone Care Team Providers Care Vehicle Assembler Name Role Phone Donnell Childers MD Unavailable [...] Diagnoses Date Provider Providers Copied on Encounter [facility], [address], [address], tel:[phone] [facility] Closed fracture of left ankle with routine healing 7 Stazzone Donnell. [address] [place], [place], [address] . tel: [phone] [facility], [address] [facility] [address], [place], [address], tel:[phone] [facility] Closed fracture of left ankle, initial encounter 7 Stazzone Donnell. [address] [place], [place], [address] . tel: [phone] Family History Family Member Type Diagnosis Age At Onset No Information Payers Payer name Insurance type Covered democrat ID Authoriza tion(s) [employer] [id number] Social History Type Description Quantity Date Captured [...]
--- OUTSIDE RECORDS SUMMARY | 2025-02-14 19:25 | XMS_ITS | Clinical Summary ---
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 Gender Identity Not on file Sexual Orientation Not on file Obstetrics History Last Filed Vital Signs Vital Sign Reading Time Taken Comments Blood Pressure 124/79 08/10/2024 7:28 AM MANAGER MILITARY Pulse 75 08/10/2024 7:28 AM MANAGER MILITARY Temperature 36.6 C (97.8 F) 08/10/2024 7:28 AM MANAGER MILITARY Respiratory Rate 16 08/10/2024 7:28 AM MANAGER MILITARY Oxygen Saturation 99% 08/10/2024 7:28 AM MANAGER MILITARY Inhaled Oxygen Concentration - - Weight 75.8 kg (167 lb) 08/10/2024 5:05 AM MANAGER MILITARY Height 177.8 cm (5' 10) 08/10/2024 5:05 AM MANAGER MILITARY Body Mass Index 23.96 08/10/2024 5:05 AM MANAGER MILITARY Plan of Treatment Health Maintenance Due Date Last Done Comments Depression Screening 2004 Hepatitis C Screening 2004 Meningococcal B Vaccine (2 o f 2 - Bexsero SCDM 2-dose series) 07/26/2022 01/23/2022 Regular Well Visit/Exam 18-64 2022 Covid-19 Vaccine ( - 2023-2 5 season) 2024 01/23/2022, 07/04/2021, 06/13/2021 Influenza Vaccine (#1) 2025 , 04/20/2013, 04/20/2013, Additional history exists DTaP/Tdap/Td Vaccine [...] Vaccine Completed 01/23/2022 , 04/03/2020, 10/15/2017 Insurance [facility] Care Teams Director Traffic And Planning Relationship Specialty Start Date End Date No, Physician PCP - General 08/05/24
--- OUTSIDE RECORDS SUMMARY | 2025-02-14 19:25 | XMS_ITS | Clinical Summary ---
Author Organization [facility] Address [address] [facility] [place] [address] Care Team Providers Care Broom Stitcher Name Role Phone Sanjuanita Gray MD Primary Care Provider [phone] Vanda Hale APRN-PRINTS AND DRAWINGS CURATOR Unavailable [phone] Source Comments [facility],non-owned Affiliates and Associated Physician Practices is amultiple site organization consisting of ambulatory clinics and hospital sitesin [place], [place], [place] and [place]. This disclosure is being madepursuant to the Care Everywhere program and may not contain all information available regarding this patient. 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 Gender Identity Not on file Sexual Orientation [...] season) 2024 DEPRESSION SCREENING 06/30/2024 INFLUENZA VACCINE (#1) 2025 3, 04/11/2010, 05/30/2009 ZOSTER VACCINE (1 of 2) 2054 HIB VACCINE Aged Out No longer eligi ble based on patient's age to complete this topic MENINGOCOCCAL GROUPS A/C/Y/W VACCINE Aged Out No longer eligible b ased on patient's age to complete this topic PNEUMOCOCCAL VACCINE Aged Out No long er eligible based on patient's age to complete this topic Insurance [employer] [place] [id number] Care Teams Broom Stitcher Relationship Specialty Start Date End Date Sanjuanita Gray MD [address] [facility] [address] [place] [address] PCP - General 08/23/09 Vanda Hale, BUILDING RIGGER-PRINTS AND DRAWINGS CURATOR [address] [place] [address] PCP - Attributed-[employer] Medicaid [place] 02/29/24
--- OUTSIDE RECORDS SUMMARY | 2025-02-14 19:26 | XMS_ITS | Continuity of Care Document ---
Author Organization [facility] Address [address] [place] [address] Phone Care Team Providers Care Heating And Cooling Technician Name Role Phone Maikol Gray MD Unavailable [...] Diagnoses Date Provider Providers Copied on Encounter [facility], [address], [place], [place], [address] , [place] tel: [phone] [place] Encntr for routine child health exam w/o abnormal findingsMild intermittent asthma without complicationAllergic rhinitis, unspecified Sep-0 3- 9 Isaac Lassiter. [address], [address], [place], [place], [address], [place]. tel:[phone] Referring Provider: Maikol Singh, [address] [facility] [address], [place], [address] . tel:[phone] [facility], [address], [place], [place], [address] , [place] tel: [phone] [place] acute visit (chief complaint) Bone pain 9 Nemo Oquendo. [address], [address], [place], [place], [address], [place]. tel:[phone] Referring Provider: Maikol Singh, [address], [place], [address] . tel:[phone] [facility], [address], [place], [place], [address] , [place] tel: [phone] [place] well visit (chief complaint) Asthma-con trol (chief complaint) Encntr for routine child health exam w/o abnormal findingsMild persistent asthma without complication 8 Isaac Lassiter. [address], [address], [place], [place], [address], [place]. tel:[phone] Referring Provider: Maikol Singh, [address], [place], [address] . tel:[phone] [facility], [address], [place], [address] , [place] tel: [phone] [place] Injury of left ankle, initial encounter 7 Nemo Oquendo. [address], [address], [place], [place], [address], [place]. tel:[phone] Referring Provider: Maikol Singh, [address], [place], [address] . tel:[phone] [facility] [address], [place], [place], [address] , tel: [phone] [place] Agitated depression 7 Isaac Lassiter. [address], [address], [place], [place], [address], [place]. tel:[phone] Referring Provider: Maikol Singh, [address], [place], [address] . tel:[phone] [facility] [address], [place], [place], [address] , tel: [phone] [place] Lymphadenitis 6 Isaac Lassiter. [address] [facility], [address], [place], [place], [address], [place]. tel:[phone] Referring Provider: Maikol Singh, [address], [place], [address] . tel:[phone] [facility] [address], [place], [place], [address] , tel: [phone] [place] Mild intermittent asthma with acute exacerbationHematoma of groin, initial encounter 6 Isaac Lassiter. [address], [address], [place], [place], [address], [place]. tel:[phone] Referring Provider: Maikol Singh, [address], [place], [address] . tel:[phone] [facility] [address], [place], [place], [address] , [place] tel: [phone] [place] Acute pharyngitisMigraine, unspecified, not intractable, without status migrainosus 5 Nemo Oquendo. [address], [address], [place], [place], [address], [place]. tel:[phone] Referring Provider: Maikol Singh, [address] [facility] [address], [place], [address] . tel:[phone] [facility], [address], [place], [place], [address] , tel: [phone] [place] GERD (gastroesophageal reflux disease) 5 Isaac Lassiter. [address] [facility], [address], [place], [place], [address], [place]. tel:[phone] Referring Provider: Maikol Singh, [address] [facility] [address], [place], [address] . tel:[phone] [facility] [address], [place], [address] , [place] tel: [phone] [place] Knee pain 5 Isaac Lassiter. [address] [facility], [address], [place], [place], [address], [place]. tel:[phone] Referring Provider: Maikol Singh, [address] [facility] [address], [place], [address] . tel:[phone] [facility] [address], [place], [place], [address] , tel: [phone] [facility] Lipid screeningRouj.w. [facility] or child health checkAsthma, moderate persistent, poorly-controlled 5 Isaac Lassiter. [address] [facility], [address], [place], [place], [address], [place]. tel:[phone] Referring Provider: Maikol Singh, [address] [facility] [address], [place], [address] . tel:[phone] [facility] [address], [place], [place], [address] , [place] tel: [phone] [place] Influenza-like illness 5 Isaac Lassiter. [address] [facility], [address], [place], [place], [address], [place]. tel:[phone] Referring Provider: Maikol Singh, [address] [facility] [address], [place], [address] . tel:[phone] [facility], [address], [place], [place], [address] , [place] tel: [phone] [facility] Acute suppurative otitis media without spontaneous rupture of eardrum 4 Isaac Lassiter. [address] [facility], [address], [place], [place], [address], [place]. tel:[phone] Referring Provider: Maikol Sinhg, [address] [facility] [address], [place], [address] . tel:[phone] [facility], [address], [place], [place], [address] , [place] tel: [phone] [facility] Hand, foot and mouth disease 4 Isaac Lassiter. [address] [facility], [address], [place], [place], [address], [place]. tel:[phone] Referring Provider: Maikol Singh, [address] [facility] [address], [place], [address] . tel:[phone] [facility], [address], [place], [place], [address] , [place] tel: [phone] [facility] Routine or child health checkEXTRINSIC ASTHMA, UNSPECIFIEDRoutine or child health check 3 Isaac Lassiter. [address] [facility], [address], [place], [place], [address], [place]. tel:[phone] Referring Provider: Maikol Singh, [address] [facility] [address], [place], [address] . tel:[phone] [facility], [address], [place], [place], [address] , tel: [phone] [facility] No Information 3 Isaac Lassiter. [address] [facility], [address], [place], [place], [address], [place]. tel:[phone] [facility], [address], [place], [place], [address] , [place] tel: [phone] [facility] No Information 2 Isaac Lassiter. [address] [facility], [address], [place], [place], [address], [place]. tel:[phone] [facility], [address], [place], [place], [address] , [place] tel: [phone] [facility] Routine or child health checkExamination of eyes and visionEXAM EARS & HEARING NECRoutine or child health check 2 Isaac Lassiter. [address] [facility], [address], [place], [place], [address], [place]. tel:[phone] Referring Provider: Maikol Singh, [address] [place] [address] [address], [place], [address] . tel:[phone] [facility], [address], [place], [place], [address] , [place] tel: [phone] [facility] Acute suppurative otitis media without spontaneous rupture of eardrum 1 Isaac Lassiter. [address] [facility], [address], [place], [place], [address], [place]. tel:[phone] Referring Provider: Maikol Singh, [address] [place] [address] [address], [place], [address] . tel:[phone] [facility], [address], [place], [place], [address] , [place] tel: [phone] [place] CH OBST ASTH W (AC) EXAC 1 Isaac Lassiter. [address] [facility], [address], [place], [place], [address], [place]. tel:[phone] [facility], [address], [place], [place], [address] , [place] tel: [phone] [place] ALLERGIC RHINITIS NOS 3-201 0 Isaac Lassiter. [address] [facility], [address], [place], [place], [address], [place]. tel:[phone] [facility] [employer], [address], [place], [place], [address] , tel: [phone] [place] EXTRINSIC ASTHMA NOS 9 Isaac Lassiter. [address] [facility], [address], [place], [place], [address], [place]. tel:[phone] [employer], [address], [place], [place], [address] , [place] tel: [phone] [place] No Information 9 Isaac Lassiter. [address] [facility], [address], [place], [place], [address], [place]. tel:[phone] Family History Family Member Type Diagnosis Age [...] MMR administered Source: New Imm unization Record 35964 - Hib administered Source: Source Unspecified 32951 - Polio_OPV_IPV administered Source : Source Unspecified 09738 - Hepatitis_B administered Source: Source Unspecified 00121 - DTaP_DTP_DT_PEDS administered Kavitha rce: Source Unspecified 23476 - Hib administered Source: Source Unspecified 46421 - Pneumococcal_PCV administered Kavitha rce: Source Unspecified 80219 - Hepatitis_B administered Source: Source Unspecified 08481 - Hib administered Source: Source Unspecified 56769 - DTaP_DTP_DT_PEDS administered Kavitha rce: Source Unspecified 48203 - Pneumococcal_PCV administered Kavitha rce: Source Unspecified 20554 - Polio_OPV_IPV administered Source : Source Unspecified 41339 - DTaP_DTP_DT_PEDS administered Kavitha rce: Source Unspecified 18906 - Hib administered Source: Source Unspecified 05552 - Pneumococcal_PCV administered Kavitha rce: Source Unspecified 68136 - Polio_OPV_IPV administered Source : Source Unspecified 90693 - Hepatitis_B administered Source: Source Unspecified Payers Payer name Insurance type Covered constitution party ID Authoriza tion(s) HOME STATE HEALTH PLAN CI [id number] [employer] CI [id number] [employer] CI [id number] Social History Type Description Quantity Date Captured Comments Alcohol Use Details Unknown Caffeine Use Details Unknown Tobacco Use Status No Information Smoking Status Never smoker Sex Male Vital Signs Date / Time: Height Weight [...] Due on 019 due Goal Vision screen (18-21 yr) due Goal Hematocrit . Due on 018 due Goal Vision screen (15-17 yr) due History Of Present Illness Encounter [...] t No Information Instructions Date Instruction Additional Cierar lesvia knee pain,ankle pain ,heel pain with limp-acute onsetCBC with diff,ESR,CRP,uric acid,JUNITO,Rheum FactorMotrinAlternate heating pad with ice Related to Bone pain Safety precautions Asthma: stable....re fill meds today....flu vaccine in [facility] child is diagnosed with asthma or wheezing [...]
[2025-02-14 19:29] VITALS: BP 130/67; PULSE 83; RESP 20; TEMP 36.5; O2SAT 99
--- OUTSIDE RECORDS SUMMARY | 2025-02-14 19:30 | XMS_ITS | Continuity of Care Document ---
Author Organization [employer] Address [address] [place] [address] Phone Care Team Providers Care Mechanical Unit Repairer Name Role Phone Maikol Gray MD Unavailable [...] Diagnoses Date Provider Providers Copied on Encounter [employer], [address], [place], [place], [address] , [place] tel: [phone] [place] Encntr for routine child health exam w/o abnormal findingsMild intermittent asthma without complicationAllergic rhinitis, unspecified Sep-0 3- 9 Isaac Lassiter. [address], [address], [place], [place], [address], [place]. tel:[phone] Referring Provider: Maikol Singh, [address] [facility] [address], [place], [address] . tel:[phone] [employer], [address], [place], [place], [address] , [place] tel: [phone] [place] acute visit (chief complaint) Bone pain 9 Nemo Oquendo. [address], [address], [place], [place], [address], [place]. tel:[phone] Referring Provider: Maikol Singh, [address], [place], [address] . tel:[phone] [employer], [address], [place], [place], [address] , [place] tel: [phone] [place] well visit (chief complaint) Asthma-con trol (chief complaint) Encntr for routine child health exam w/o abnormal findingsMild persistent asthma without complication 8 Isaac Lassiter. [address], [address], [place], [place], [address], [place]. tel:[phone] Referring Provider: Maikol Singh, [address], [place], [address] . tel:[phone] [employer], [address], [place], [place], [address] , [place] tel: [phone] [place] Injury of left ankle, initial encounter 7 Nemo Oquendo. [address], [address], [place], [place], [address], [place]. tel:[phone] Referring Provider: Maikol Singh, [address], [place], [address] . tel:[phone] [facility] [address], [place], [place], [address] , tel: [phone] [place] Agitated depression 7 Isaac Lassiter. [address], [address], [place], [place], [address], [place]. tel:[phone] Referring Provider: Maikol Singh, [address], [place], [address] . tel:[phone] [facility] [address], [place], [place], [address] , tel: [phone] [place] Lymphadenitis 6 Isaac Lassiter. [address] [facility], [address], [place], [place], [address], [place]. tel:[phone] Referring Provider: Maikol Singh, [address], [place], [address] . tel:[phone] [facility] [address], [place], [place], [address] , tel: [phone] [place] Mild intermittent asthma with acute exacerbationHematoma of groin, initial encounter 6 Isaac Lassiter. [address], [address], [place], [place], [address], [place]. tel:[phone] Referring Provider: Maikol Singh, [address], [place], [address] . tel:[phone] [facility] [address], [place], [place], [address] , [place] tel: [phone] [place] Acute pharyngitisMigraine, unspecified, not intractable, without status migrainosus 5 Nemo Oquendo. [address], [address], [place], [place], [address], [place]. tel:[phone] Referring Provider: Maikol Singh, [address] [facility] [address], [place], [address] . tel:[phone] [facility], [address], [place], [place], [address] , tel: [phone] [place] GERD (gastroesophageal reflux disease) 5 Isaac Lassiter. [address] [facility], [address], [place], [place], [address], [place]. tel:[phone] Referring Provider: Maikol Singh, [address] [facility] [address], [place], [address] . tel:[phone] [facility] [address], [place], [place], [address] , [place] tel: [phone] [place] Knee pain 5 Isaac Lassiter. [address] [facility], [address], [place], [place], [address], [place]. tel:[phone] Referring Provider: Maikol Singh, [address] [facility] [address], [place], [address] . tel:[phone] [facility] [address], [place], [place], [address] , tel: [phone] [facility] Lipid screeningRoucleveland clinic mercy hospital or child health checkAsthma, moderate persistent, poorly-controlled 5 Isaac Lassiter. [address] [facility], [address], [place], [place], [address], [place]. tel:[phone] Referring Provider: Maikol Singh, [address] [facility] [address], [place], [address] . tel:[phone] [facility] [address], [place], [place], [address] , [place] tel: [phone] [place] Influenza-like illness 5 Isaac Lassiter. [address] [facility], [address], [place], [place], [address], [place]. tel:[phone] Referring Provider: Maikol Singh, [address] [facility] [address], [place], [address] . tel:[phone] [facility], [address], [place], [place], [address] , [place] tel: [phone] [facility] Acute suppurative otitis media without spontaneous rupture of eardrum 4 Isaac Lassiter. [address] [facility], [address], [place], [place], [address], [place]. tel:[phone] Referring Provider: Maikol Singh, [address] [facility] [address], [place], [address] . tel:[phone] [facility], [address], [place], [place], [address] , [place] tel: [phone] [facility] Hand, foot and mouth disease 4 Isaac Lassiter. [address] [facility], [address], [place], [place], [address], [place]. tel:[phone] Referring Provider: Maikol Singh, [address] [facility] [address], [place], [address] . tel:[phone] [facility], [address], [place], [place], [address] , [place] tel: [phone] [facility] Routine or child health checkEXTRINSIC ASTHMA, UNSPECIFIEDRoutine or child health check 3 Isaac Lassiter. [address] [facility], [address], [place], [place], [address], [place]. tel:[phone] Referring Provider: Maikol Singh, [address] [facility] [address], [place], [address] . tel:[phone] [facility], [address], [place], [place], [address] , tel: [phone] [facility] No Information 3 Isaac Lassiter. [address] [facility], [address], [place], [place], [address], [place]. tel:[phone] [facility], [address], [place], [place], [address] , [place] tel: [phone] [facility] hospit[facility] No Information 2 Isaac Lassiter. [address] [facility], [address], [place], [place], [address], [place]. tel:[phone] [facility], [address], [place], [place], [address] , [place] tel: [phone] [facility] Routine or child health checkExamination of eyes and visionEXAM EARS & HEARING NECRoutine or child health check 2 Isaac Lassiter. [address] [facility], [address], [place], [place], [address], [place]. tel:[phone] Referring Provider: Maikol Singh, [address] [place] [address] [address], [place], [address] . tel:[phone] [facility], [address], [place], [place], [address] , [place] tel: [phone] [facility] Acute suppurative otitis media without spontaneous rupture of eardrum 1 Isaac Lassiter. [address] [facility], [address], [place], [place], [address], [place]. tel:[phone] Referring Provider: Maikol Singh, [address] [place] [address] [address], [place], [address] . tel:[phone] [facility], [address], [place], [place], [address] , [place] tel: [phone] [place] CH OBST ASTH W (AC) EXAC 1 Isaac Lassiter. [address] [facility], [address], [place], [place], [address], [place]. tel:[phone] [facility], [address], [place], [place], [address] , [place] tel: [phone] [place] ALLERGIC RHINITIS NOS 3-201 0 Isaac Lassiter. [address] [facility], [address], [place], [place], [address], [place]. tel:[phone] [facility] [employer], [address], [place], [place], [address] , tel: [phone] [place] EXTRINSIC ASTHMA NOS 9 Isaac Lassiter. [address] [facility], [address], [place], [place], [address], [place]. tel:[phone] [employer], [address], [place], [place], [address] , [place] tel: [phone] [place] No Information 9 Isaac Lassiter. [address] [facility], [address], [place], [place], [address], [place]. tel:[phone] Family History Family Member Type Diagnosis Age [...] MMR administered Source: New Imm unization Record 25193 - Hib administered Source: Source Unspecified 00934 - Polio_OPV_IPV administered Source : Source Unspecified 80907 - Hepatitis_B administered Source: Source Unspecified 54420 - DTaP_DTP_DT_PEDS administered Kavitha rce: Source Unspecified 19350 - Hib administered Source: Source Unspecified 56232 - Pneumococcal_PCV administered Kavitha rce: Source Unspecified 54795 - Hepatitis_B administered Source: Source Unspecified 75054 - Hib administered Source: Source Unspecified 96240 - DTaP_DTP_DT_PEDS administered Kavitha rce: Source Unspecified 80265 - Pneumococcal_PCV administered Kavitha rce: Source Unspecified 09381 - Polio_OPV_IPV administered Source : Source Unspecified 19952 - DTaP_DTP_DT_PEDS administered Kavitha rce: Source Unspecified 06642 - Hib administered Source: Source Unspecified 18854 - Pneumococcal_PCV administered Kavitha rce: Source Unspecified 44996 - Polio_OPV_IPV administered Source : Source Unspecified 98522 - Hepatitis_B administered Source: Source Unspecified Payers Payer name Insurance type Covered democrat ID Authoriza tion(s) HOME STATE HE[employer] PLAN CI [id number] [employer] CI [id number] [employer] CI [id number] Social History Type Description Quantity Date Captured [...] Asthma: stable....re fill meds today....flu vaccine in [facility] child is diagnosed with asthma [...]
--- OUTSIDE RECORDS SUMMARY | 2025-02-14 19:30 | XMS_ITS | Continuity of Care Document ---
Author Organization [facility] Address [address] [facility] [address] [place] [address] Phone Care Team Providers Care Inventory And Pricing Associate Name Role Phone Donnell Childers MD Unavailable [...] Diagnoses Date Provider Providers Copied on Encounter [facility], [address], [address], tel:[phone] [facility] Closed fracture of left ankle with routine healing 7 Stazzone Donnell. [address] [place], [place], [address] . tel: [phone] [facility], [address] [facility] [address], [place], [address], tel:[phone] [facility] Closed fracture of left ankle, initial encounter 7 Stazzone Donnell. [address] [place], [place], [address] . tel: [phone] Family History Family Member Type Diagnosis Age At Onset No Information Payers Payer name Insurance type Covered libertarian ID Authoriza tion(s) [id number] Social History Type Description Quantity Date Captured [...]
[2025-02-14 19:54] LABS: EDCOVIDSCREEN Negative (Negative); EDINFLUASCREEN Negative (Negative); EDINFLUBSCREEN Negative (Negative); EDSTREPNEGPOS1 Negative (Negative)
--- NOTE | 2025-02-14 19:57 | ED_ITS ---
HPI - URI/Sore Throat General Chief Complaint: Upper Respiratory Infection Stated Complaint: fever symptoms Time Seen by Provider: 02/14/25 19:45 Source: patient and RN notes reviewed Mode of arrival: ambulatory Limitations: no limitations History of Present Illness HPI Narrative: 19-year-old male presents [facility] complaining of upper respiratory symptoms for approximately 4 days now. Patient reports congestion, cough, sore throat, diarrhea. Patient denies any fevers, body aches, chills, nausea, vomiting, abdominal pain chest pain, shortness of breath, breathing problems, earache, or any other symptoms. Patient feels like his symptoms are getting much better today but they have not fully subsided. Patient has been using throat spray in Tylenol to help with the pain. Patient denies any significant past medical history. Related Data Home Medications ?Medication ?Instructions ?Recorded ?Confirmed ?Last Taken ?Type No Home Medications 02/14/25 Unknown History Allergies Allergy/AdvReac Type Severity Reaction Status Date / Time Penicillins Allergy Unknown unknown Verified 02/14/25 19:37 Review of Systems Review of Systems: CONSTITUTIONAL: Denies fever, chills, body aches, or sweats. EYES: Denies visual changes, redness, or discharge. ENT: Positive congestion, sore throat. Negative for rhinorrhea Or otalgia. CARDIOVASCULAR: Denies chest pain, palpitations, or edema. RESPIRATORY: Positive for cough. Negative for dyspnea or wheezing. GASTROINTESTINAL: Denies abdominal pain, nausea, vomiting, or diarrhea. GENITOURINARY: Denies dysuria or hematuria. SKIN: Denies rash or itching. MUSCULOSKELETAL: Denies back pain, joint pain, or myalgia. NEUROLOGIC: Denies headache, numbness, or weakness. PSYCHIATRIC: Denies anxiety or depression. All other systems reviewed are negative, except as documented in HPI. PMFSH Comments At the time of my signature, I reviewed and agree with the nursing past medical, surgical, social, and family history. There is no relevant family history pertinent to the patient complaint. Exam Narrative: GENERAL: This is a well-nourished, well-developed adult, in no apparent distress. They are non ill-appearing, nontoxic appearing. HEAD: normocephalic, atraumatic. EYES: Sclera clear/white. Vision is grossly intact. Conjunctiva normal bilaterally. Extraocular movements intact. EARS: External ears normal, auditory canals clear and without drainage, TMs without erythema or perforation. Hearing grossly intact. NOSE: External nose normal with no obvious nasal discharge, nasal turbinates erythematous, no rhinorrhea. THROAT: Mucous membranes moist, posterior pharynx erythematous without exudate. Uvula is midline. Postnasal drip present. NECK: Neck supple, non-tender without lymphadenopathy, masses or thyromegaly. CARDIOVASCULAR: Regular rate and rhythm without murmurs, gallops, or rubs. RESPIRATORY: Clear to auscultation. Breath sounds equal bilaterally. No wheezes, rales, or rhonchi. GASTROINTESTINAL: Abdomen soft, nontender, nondistended, flat. Bowel sounds active. No guarding or rigidity. No rebound tenderness. No hepatosplenomegaly or palpable masses. SKIN: warm, Dry, intact with no suspicious lesions or rash, good texture and turgor. NEURO: awake, alert, and oriented to person, place and time. There were no obvious focal neurologic abnormalities. EXTREMITIES: No joint tenderness, effusion, or edema noted. Course Course Emergency Course: Portions of this record may have been created with voice recognition software Level of Care: Express Care Visit Vital Signs Vital signs: Vital Signs Temperature 97.7 F 02/14/25 19:29 Pulse Rate 83 02/14/25 19:29 Respiratory Rate 20 02/14/25 19:29 Blood Pressure 130/67 02/14/25 19:29 Pulse Oximetry 99 02/14/25 19:29 Oxygen Delivery Room Air 02/14/25 19:29 Temperature 97.7 F 02/14/25 19:29 Pulse Rate 83 02/14/25 19:29 Respiratory Rate 20 02/14/25 19:29 Blood Pressure 130/67 02/14/25 19:29 Pulse Oximetry 99 02/14/25 19:29 Oxygen Delivery Room Air 02/14/25 19:29 MDM - URI/Sore Throat MDM Narrative Medical decision making narrative: Rapid COVID, flu, strep were negative. A throat culture is pending. Patient's symptoms viral in etiology. Discussed physical exam findings. Advised supportive measures and signs/symptoms to go to the ER. Pt is appropriate for outpt treatment and f/u. Differential Diagnosis Differential diagnosis: Likely upper respiratory infection, sinusitis, viral infection and pharyngitis Lab Data Attestation: I reviewed the patient's lab results. Labs: Lab Results 02/14/25 Range/Units 19:36 POC Influenza A Ag Negative (Negative) POC Influenza B Ag Negative (Negative) POC SARS CoV-2 Ag Negative (Negative) POC Grp A Strep Screen Negative (Negative) Discharge Plan Discharge Clinical Impression: Upper respiratory infection Qualifiers: URI type: unspecified viral URI Qualified Code(s): J06.9 - Acute upper respiratory infection, unspecified Patient Disposition: Home Condition: Stable Instructions: Antibiotic Form, Upper Respiratory Infection (ED) Additional Instructions: Your rapid strep swab, COVID, flu was negative today at [facility]. You will be notified in a few days if the culture comes back positive for strep, and appropriate antibiotics will be called in for you at that time. Your symptoms are likely due to a viral illness, which is not treated with antibiotics. Most Viral symptoms can be present for up to 7-10 days. Take Tylenol or ibuprofen for fever or pain. Follow instructions on the bottle. Rest and stay hydrated. Follow up with your PCP in 3-5 days if symptoms are not improving. Go to the ER immediately if you develop difficulty breathing or swallowing Patient Language: [place] Prescriptions: No Action No Home Medications Follow-up/Referrals: PHYSICIAN,ASSOCIATE PROFESSOR OF ART [Primary Care Provider] - Stand Alone Forms: Work/School Release IP Time of Disposition: 19:56
== END 2025-02-14 19:58 | disposition home or self-care (01) ==
DX: J06.9 Acute upper respiratory infection, unspecified (principal); Z20.822 Contact with and (suspected) exposure to COVID-19
CPT/HCPCS: 87426; 87804; 87880; 99213; G0463